=== PATIENT | male | born 1985 | race African-American/Black ===

== ENCOUNTER 2019-10-16 01:16 | Emergency (ER) | payer SELFPAY ==
[~2019-10-16] VITALS: Ht 182.9 cm; Wt 114.0 kg
[~2019-10-16 01:16] MED LIST: MORPHINE SULFATE 4 MG/ML SYRINGE IVP ONE; ONDANSETRON HCL 4 MG/2 ML VIAL IVP ONE; PERTUSS(ACELL),DIPH,TET VAC/PF 0.5 ML VIAL IM ONE
[2019-10-16] MEDS ORDERED: CeFAZolin 1 GM/DEXTROSE 50 ML IV ONE ×3 (01:30→01:45)
[2019-10-16 01:31] LABS: BASOPHILS % (AUTO) 0.4 % (0.0-2.0); EOSINOPHILS % (AUTO) 0.2 % (1.0-6.0); HEMATOCRIT 41.7 % (41-53); HEMOGLOBIN 13.6 g/dL (13.5-17.5); LYMPHOCYTES # (AUTO) 3.2 K/uL (1.0-4.8); LYMPHOCYTES % (AUTO) 23.8 % (22.0-44.0); MEAN CORPUSCULAR HEMOGLOBIN 29.2 pg (26.0-34.0); MEAN CORPUSCULAR HGB CONC 32.8 G/dL (31.0-37.0); MEAN CORPUSCULAR VOLUME 89 fL (80-100); MONOCYTES # (AUTO) 0.5 K/uL (0.1-1.0); MONOCYTES % (AUTO) 4.1 % (2.0-9.0); NEUTROPHILS # (AUTO) 9.7 K/uL (1.8-7.7); NEUTROPHILS % (AUTO) 71.5 % (40.0-70.0); PLATELET COUNT (AUTO) 399 K/uL (150-450); RED BLOOD CELL COUNT(AUTO) 4.68 MIL/uL (4.50-5.90); RED CELL DISTRIBUTION WIDTH 14.1 % (11.5-14.5)
[2019-10-16 01:33] VITALS: BP 123/63
[2019-10-16 01:48] LABS: INR 1.1 (0.9-1.1); PROTHROMBIN TIME 11.1 SEC (9.4-11.6)
[2019-10-16 01:51] LABS: ALBUMIN 4.1 g/dL (3.4-5.0); BILIRUBIN,TOTAL 0.3 mg/dL (0.1-1.0); CALCIUM, TOTAL 8.7 mg/dL (8.8-10.5); CREATININE 1.94 mg/dL (0.60-1.30); TOTAL PROTEIN, SERUM 7.5 g/dL (6.4-8.2)
[2019-10-16 01:53] LABS: POTASSIUM 2.8 mmol/L (3.5-5.1)
== END 2019-10-16 01:40 | disposition short-term general hospital (02) ==
LOC: EMS 01:16
DX: S81.832A Puncture wound without foreign body, left lower leg, initial encounter (principal); S81.831A Puncture wound without foreign body, right lower leg, initial encounter; S31.139A Puncture wound of abdominal wall without foreign body, unspecified quadrant without penetration into peritoneal cavity, initial encounter; S41.132A Puncture wound without foreign body of left upper arm, initial encounter; S41.131A Puncture wound without foreign body of right upper arm, initial encounter; W34.09XA Accidental discharge from other specified firearms, initial encounter; Y93.89 Activity, other specified; Y92.89 Other specified places as the place of occurrence of the external cause; Y99.8 Other external cause status
CPT/HCPCS: 36415; 71045; 80053; 85025; 85610; 85730; 86850; 86900; 86901; 90471; 90715; 96374; 96375; 99291; J0690; J2270; J2405; 96365